=== PATIENT | female | born 1985 | race Caucasian/White ===

== ENCOUNTER 2020-08-07 13:44 | Emergency (ER) | payer OTHER, MEDICAID, SELFPAY ==
[2020-08-07 13:50] VITALS: BP 145/89; PULSE 86; RESP 14; TEMP 36.4; O2SAT 97; BMI 28.1
[2020-08-07] MEDS: KETOROLAC 60 MG/2 ML VIAL 30 MG IM (14:56)
--- NOTE | 2020-08-07 15:03 | ED_ITS ---
HPI - Dental/Oral <CHASE Souza - Last Filed: 08/07/20 15:51> General Chief complaint: Dental/Oral Stated complaint: swelling in mouth, painful since last night Time Seen by Provider: 08/07/20 14:31 Source: patient Mode of arrival: Ambulatory Limitations: no limitations History of Present Illness HPI Narrative: The patient is a 35-year-old female who presents with her significant other with a chief complaint of pain and swelling in her mouth. She is concerned about dental infection. She does not currently use IV drugs, though she has in the past. No history of diabetes. She states she is ?very bad teeth with multiple cavities and fractures. She states she noticed this last night and that is very painful to touch her gums. She denies any fevers muscle aches or chills. She states that she is going to get an appointment with a dentist. Related Data Previous Rx's Medication Instructions Recorded cephalexin [Keflex] 500 mg PO TID #21 cap 04/29/16 ketorolac 10 mg PO TID PRN 5 Days #15 tab 08/07/20 penicillin V potassium 500 mg PO TID 10 Days #30 tab 08/07/20 Allergies Allergy/AdvReac Type Severity Reaction Status Date / Time No Known Drug Allergies Allergy Verified 08/07/20 13:50 Review of Systems <NICHOLE Souza - Last Filed: 08/07/20 15:51> Review of Systems Narrative: GENERAL: Denies chills, fatigue, malaise, fever, sweats. HEENT: See HPI RESPIRATORY: Denies dyspnea, cough, wheezing, hemoptysis, sputum. CARDIOVASCULAR: Denies chest pain, palpitations, orthopnea, edema, GASTROINTESTINAL: Denies nausea, vomiting, abdominal pain, diarrhea, constipation, melena. : Denies dysuria, frequency, incontinence, hematuria, urinary retention. MUSCULOSKELETAL: denies weakness, joint pain, or bony pain SKIN: Denies rash, skin lesions, or other NEUROLOGIC: Denies weakness, headache, numbness, change in speech, confusion, seizures, incoordination. PSYCHIATRIC: No concerning psychosocial issues. 12 point review of systems is negative except for those stated above Patient History <CHASE Souza - Last Filed: 08/07/20 15:51> Medical History (Updated 08/07/20 @ 15:07 by CHASE Souza) Anxiety Depression Substance abuse Vaginal delivery (07/14/13) Exam <CHASE Souza - Last Filed: 08/07/20 15:51> Narrative Exam Narrative: GENERAL: This is a well-nourished, well-developed patient, in no acute distress HEAD: Atraumatic. Normocephalic. No temporal or scalp tenderness. EYES: Pupils equal round and reactive. Extraocular motions intact. No scleral icterus. No injection or drainage. ENT: Nose without bleeding, purulent drainage or septal hematoma. Throat without erythema, tonsillar hypertrophy or exudate. Uvula midline. Airway patent. Poor dentition with multiple broken teeth and cavities noted. Pain to palpation of left upper gumline, swelling noted, no palpable fluctuance or abscess NECK: Trachea midline. No JVD or lymphadenopathy. Supple, nontender, no meningeal signs. CARDIOVASCULAR: Regular rate and rhythm RESPIRATORY: Clear to auscultation. Breath sounds equal bilaterally. No wheezes, rales, or rhonchi. GASTROINTESTINAL: Abdomen soft, non-tender, nondistended. No hepato- splenomegaly, or palpable masses. No guarding. NEURO: AOx3. SKIN: No rash or erythema on visible skin. No erythema overlying face. Initial Vital Signs Initial Vital Signs: Vital Signs Temperature 97.6 F 08/07/20 13:50 Pulse Rate 86 08/07/20 13:50 Respiratory Rate 14 08/07/20 13:50 Blood Pressure 145/89 H 08/07/20 13:50 Pulse Oximetry 97 08/07/20 13:50 <Lizzeth Pavon DO - Last Filed: 08/07/20 19:29> Initial Vital Signs Initial Vital Signs: Vital Signs Temperature 97.6 F 08/07/20 13:50 Pulse Rate 86 08/07/20 13:50 Respiratory Rate 14 08/07/20 13:50 Blood Pressure 145/89 H 08/07/20 13:50 Pulse Oximetry 97 08/07/20 13:50 Scores <CHASE Souza - Last Filed: 08/07/20 15:51> GCS [place] coma scale eye opening: Spontaneous [place] coma scale verbal response: Orientated [place] coma scale motor response: Obey commands [place] coma scale total score: 15 Course <ARLENE Souza-BC - Last Filed: 08/07/20 15:51> Orders Ordered: Discontinued Medications Ketorolac Tromethamine (Ketorolac 60 Mg/2 Ml Vial) 30 mg IM NOW ONE Stop: 08/07/20 14:51 Last Admin: 08/07/20 14:56 Dose: 30 mg Documented by: JESSENIA Vital Signs Vital signs: Vital Signs - 8 hr 08/07/20 13:50 Temperature 97.6 F Pulse Rate 86 Respiratory Rate 14 Blood Pressure 145/89 H Pulse Oximetry 97 <Lizzeth Pavon DO - Last Filed: 08/07/20 19:29> Orders Ordered: Discontinued Medications Ketorolac Tromethamine (Ketorolac 60 Mg/2 Ml Vial) 30 mg IM NOW ONE Stop: 08/07/20 14:51 Last Admin: 08/07/20 14:56 Dose: 30 mg Documented by: JESSENIA Vital Signs Vital signs: Vital Signs - 8 hr 08/07/20 13:50 Temperature 97.6 F Pulse Rate 86 Respiratory Rate 14 Blood Pressure 145/89 H Pulse Oximetry 97 MDM - Dental/Oral <NICHOLE SouzaBC - Last Filed: 08/07/20 15:51> MDM Narrative Medical decision making narrative: The patient is a 35-year-old female who presents with a chief complaint of dental pain and swelling. Exam indicates infection. No palpable drainable abscess. Will start on penicillin. No signs of systemic infection, though the patient notes that she understands that these are return precautions. Encouraged follow-up with primary care provider in the next few days. Discussed coming back to the ER for acute concerns. Toradol prescription given. Patient has no questions or concerns upon discharge states understanding of return precautions as well as follow-up care. Discharge Plan Departure Patient Disposition: Home Clinical Impression: Dental infection Instructions: Tooth Abscess, DI for Dental Pain Activity Restrictions/Additional Instructions: Thank you for trusting us with your care today. As discussed, I sent 2 prescriptions to [facility]. This includes an antibiotic for infection. Please take this with probiotic or yogurt to help prevent antibiotic related side effects. Please follow-up with primary care provider as well as a dentist Please come back to the ER for acute concerns such as high fevers, inability to tolerate fluids etcetera Prescriptions: New penicillin V potassium 500 mg tablet 500 mg PO TID 10 Days Qty: 30 RF: 0 ketorolac 10 mg tablet 10 mg PO TID PRN (Reason: pain) 5 Days Qty: 15 RF: 0 No Action cephalexin [Keflex] 500 MG capsule 500 mg PO TID Qty: 21 RF: 0 Referrals: [facility] [Outside] <Lizzeth Pavon, - Last Filed: 08/07/20 19:29> Cosign ED Attending Lam Attestation: I was immediately available in the department for consultation. Documentation has been reviewed.
== END 2020-08-07 15:37 | disposition home or self-care (01) ==
PROVIDERS: Emergency Provider Nurse Practitioner Family
DX: K04.7 Periapical abscess without sinus (principal)
CPT/HCPCS: 96372; 99281; 99283; J1885

== ENCOUNTER 2020-11-06 14:20 | Emergency (ER) | payer OTHER, MEDICAID, SELFPAY ==
[2020-11-06 14:25] VITALS: BP 129/84; PULSE 86; RESP 15; TEMP 36.8; O2SAT 97; BMI 24.2
--- NOTE | 2020-11-06 16:28 | ED_ITS ---
HPI - Dental/Oral General Chief complaint: Dental/Oral Stated complaint: gumline swollen, bad tooth, really hurts Time Seen by Provider: 11/06/20 16:17 Source: patient Mode of arrival: Ambulatory Limitations: no limitations History of Present Illness HPI Narrative: 35-year-old female daily smoker with extensive dental history presents with significant other and a chief complaint of some subtle left lower jaw swelling, pain and concern for dental infection. She has no systemic findings such as fever, chills nor nausea or vomiting. She denies any recent dental fracture. She has been in the process of trying to establish with dentist. She denies any intraoral swelling, trouble swallowing or breathing nor drainage or foul taste MD Complaint: tooth pain Teeth map: 1. Onset (ago): day(s) Duration: constant Severity: moderate Relieving factors: nothing Exacerbating factors: chewing Context: history of dental caries Associated symptoms: gum swelling Treatment prior to arrival: none Related Data Previous Rx's Medication Instructions Recorded cephalexin [Keflex] 500 mg PO TID #21 cap 04/29/16 amoxicillin-pot clavulanate 1 tab PO BID #20 tab 11/06/20 [Augmentin] ibuprofen 800 mg PO Q8H PRN #20 tab 11/06/20 Allergies Allergy/AdvReac Type Severity Reaction Status Date / Time No Known Drug Allergies Allergy Verified 11/06/20 14:26 Review of Systems Constitutional Constitutional: Denies chills, Denies fatigue, Denies fever(s), Denies frequent falls, Denies lethargy and Denies weakness Eyes Eyes: Denies change in vision, Denies eye discharge, Denies irritation and Denies loss of vision ENT Ears, Nose, Mouth, and Throat: Denies change in voice, Reports dental pain, Denies dizziness, Denies neck pain, Denies sore throat and Denies throat swelling Cardiovascular Cardiovascular: Denies chest pain, Denies irregular heart rhythm, Denies lightheadedness, Denies palpitations, Denies dyspnea, Denies dyspnea on exertion and Denies orthopnea Respiratory Respiratory: Denies cough, Denies dyspnea, Denies dyspnea on exertion and Denies wheezing Gastrointestinal Gastrointestinal: Denies abdominal pain, Denies change in bowel habits, Denies diarrhea, Denies nausea and Denies vomiting Musculoskeletal Musculoskeletal: Denies neck pain and Denies numbness Integumentary/Breasts Skin/Breast: Denies pruritus, Denies erythema, Denies rash and Denies wounds Neurologic Neurologic: Denies behavioral changes, Denies confusion, Denies dizziness, Denies frequent falls, Denies loss of vision, Denies numbness and Denies weakness Psychiatric Psychiatric: Denies anxiety, Denies behavioral changes, Denies confusion, Denies depression, Denies homicidal ideation and Denies suicidal ideation Endocrine Endocrine: Denies fatigue, Denies flushing and Denies palpitations Hematologic/Lymphatic Hematologic/Lymphatic: Denies easy bruising Allergic/Immunologic Allergic/Immunologic: Denies urticaria, Denies throat swelling and Denies wheezing Patient History Medical History Anxiety Depression Substance abuse Vaginal delivery (07/14/13) Social History Smoking Status: Current every day smoker Smoking Status: Current every day smoker alcohol intake frequency: holidays/special occasions only Substance Use Type: marijuana Exam Narrative Exam Narrative: GEN: AOx3 and in mild distress EYES: Pupils are equal, round, and reactive to light and accommodation. Extraoccular muscles are intact bilaterally. There is no subconjunctival hemorrhage or exudate. ENT: mild left lower mandibular swelling. No redness, warmth, fluctuance. Intraoral exam demonstrates widespread poor dentition, multiple eroded teeth, no obvious fluctuance or intraoral abscess to drain CHEST: Lungs are clear to auscultation bilaterally and free of wheezes, rales, or rhonchi. Heart rate is regular rhythm, there are no murmurs, clicks, rubs, or gallops. There is no chest wall tenderness. ABD: Abdomen is soft and nontender. There is no guarding or rebound. Bowel sounds are normal in all 4 quadrants. There is no mass or organomegaly. EXT: Full painless ROM of all extremities with no loss of sensation or strength. SKIN: Warm, pink, and dry. No erythema or rash Initial Vital Signs Initial Vital Signs: Vital Signs Temperature 98.3 F 11/06/20 14:25 Pulse Rate 86 11/06/20 14:25 Respiratory Rate 15 11/06/20 14:25 Blood Pressure 129/84 11/06/20 14:25 Pulse Oximetry 97 11/06/20 14:25 Course Vital Signs Vital signs: Vital Signs - 8 hr 11/06/20 14:25 Temperature 98.3 F Pulse Rate 86 Respiratory Rate 15 Blood Pressure 129/84 Pulse Oximetry 97 Discharge Plan Departure Patient Disposition: Home Clinical Impression: Abscess, dental Instructions: Tooth Abscess Activity Restrictions/Additional Instructions: *You have been diagnosed with [dental pain with likely early abscess ] *What to do: *Please continue to take your regular medications as directed. [x ] New medication prescriptions sent to your pharmacy: [[facility] in [place] ] [ ] New medication written as a paper prescription [ ] No new medications given *Please follow up with your Dentist provider in 2-3 days, call for an appointment. Let them know you were seen in the Emergency Department and that we ask that you be seen in follow up. We will electronically transmit a record of today's note if your PCP is in our system *Return to Emergency Department if you should have any new, worsening or concerning symptoms, such as [fever greater than 101 F, shaking chills, worsening pain, persistent vomiting or other bothersome symptoms] Prescriptions: New amoxicillin-pot clavulanate [Augmentin] 875-125 mg tablet 1 tab PO BID Qty: 20 RF: 0 ibuprofen 800 mg tablet 800 mg PO Q8H PRN (Reason: pain) Qty: 20 RF: 0 No Action cephalexin [Keflex] 500 MG capsule 500 mg PO TID Qty: 21 RF: 0
[2020-11-06 17:13] VITALS: BP 116/79; PULSE 73; O2SAT 97
== END 2020-11-06 17:14 | disposition home or self-care (01) ==
PROVIDERS: Emergency Provider Emergency Medicine
DX: K04.7 Periapical abscess without sinus (principal)
CPT/HCPCS: 99281

== ENCOUNTER 2020-11-15 23:23 | Emergency (ER) | payer OTHER, MEDICAID, SELFPAY ==
[2020-11-15 23:40] VITALS: BP 119/76; PULSE 101; RESP 24; TEMP 36.8; O2SAT 98; BMI 22.7
[2020-11-16 00:05] LABS: COVID19 -Nasal RAPID Negative (Negative)
--- NOTE | 2020-11-16 00:10 | ED_ITS ---
HPI - Fever General Chief Complaint: Fever Stated Complaint: body aches had fever earlier Time Seen by Provider: 11/15/20 23:42 Source: patient Mode of arrival: Ambulatory Limitations: no limitations History of Present Illness HPI Narrative: 35-year-old female daily smoker with noncontributory medical history presents with her significant other and a chief complaint of feeling unwell over the course of the day. She has had a mild headache, runny nose and nasal congestion body aches from head to toe and multiple loose stools. She denies any recent travel or exposure to persons with COVID. She denies any bad food but has recently been on antibiotics for the treatment of a dental abscess. She denies any ongoing pain or facial swelling nor intraoral drainage. She has had multiple loose stools but denies any blood. She denies any chest pain, shortness of breath or abdominal pain. She denies any vaginal bleeding or discharge. She denies dysuria, frequency or urgency. She denies any illicit drug use. MD complaint: fever Onset (ago): hour(s) Temperature Source: subjective Associated symptoms: chills, myalgias, rhinorrhea, nasal congestion and diarrhea Relieving factors: nothing Exacerbating factors: nothing Treatments prior to arrival fever: none Related Data Previous Rx's Medication Instructions Recorded cephalexin [Keflex] 500 mg PO TID #21 cap 04/29/16 amoxicillin-pot clavulanate 1 tab PO BID #20 tab 11/06/20 [Augmentin] ibuprofen 800 mg PO Q8H PRN #20 tab 11/06/20 Allergies Allergy/AdvReac Type Severity Reaction Status Date / Time No Known Drug Allergies Allergy Verified 11/06/20 14:26 Review of Systems Constitutional Constitutional: Reports body ache(s), Reports chills, Reports fatigue, Reports fever(s), Denies frequent falls, Denies lethargy and Denies weakness Eyes Eyes: Denies change in vision, Denies eye discharge, Denies irritation and Denies loss of vision ENT Ears, Nose, Mouth, and Throat: Denies change in voice, Denies dizziness, Denies neck pain, Denies sore throat and Denies throat swelling Cardiovascular Cardiovascular: Denies chest pain, Denies irregular heart rhythm, Denies lightheadedness, Denies palpitations, Denies dyspnea, Denies dyspnea on exertion and Denies orthopnea Respiratory Respiratory: Denies cough, Denies dyspnea, Denies dyspnea on exertion and Denies wheezing Gastrointestinal Gastrointestinal: Denies abdominal pain, Denies change in bowel habits, Reports diarrhea, Denies nausea and Denies vomiting Musculoskeletal Musculoskeletal: Denies neck pain and Denies numbness Integumentary/Breasts Skin/Breast: Denies pruritus, Denies erythema, Denies rash and Denies wounds Neurologic Neurologic: Denies behavioral changes, Denies confusion, Denies dizziness, Denies frequent falls, Denies loss of vision, Denies numbness and Denies weakness Psychiatric Psychiatric: Denies anxiety, Denies behavioral changes, Denies confusion, Denies depression, Denies homicidal ideation and Denies suicidal ideation Endocrine Endocrine: Reports fatigue, Denies flushing and Denies palpitations Hematologic/Lymphatic Hematologic/Lymphatic: Denies easy bruising Allergic/Immunologic Allergic/Immunologic: Denies urticaria, Denies throat swelling and Denies wheezing Patient History Medical History Anxiety Depression Substance abuse Vaginal delivery (07/14/13) Social History Smoking Status: Current every day smoker Smoking Status: Current every day smoker tobacco type: cigarettes alcohol intake frequency: holidays/special occasions only Substance Use Type: marijuana Exam Narrative Exam Narrative: GENERAL: [35] year old patient appears stated age. Well- nourished, well-developed patient, in mild distress. HEAD: Atraumatic. Normocephalic. EYES: Pupils equal round and reactive. Extraocular motions intact. No scleral icterus. No injection or drainage. ENT: Nose without bleeding, purulent drainage. Throat without erythema, tonsillar hypertrophy or exudate. Airway patent. NECK: Trachea midline. Non tender. No meningeal signs CARDIOVASCULAR: Regular rate and rhythm without murmurs, gallops, or rubs. RESPIRATORY: Clear to auscultation. Breath sounds equal bilaterally. No wheezes, rales, or rhonchi. GASTROINTESTINAL: Abdomen soft, non-tender, nondistended. EXTREMITIES: No edema or joint tenderness. BACK: No midline tenderness, swelling, erythema or warmth. Mild flank pain B/L. NEURO: AOx3. SKIN: No rash or erythema of visible areas Initial Vital Signs Initial Vital Signs: Vital Signs Temperature 98.2 F 11/15/20 23:40 Pulse Rate 101 H 11/15/20 23:40 Respiratory Rate 24 11/15/20 23:40 Blood Pressure 119/76 11/15/20 23:40 Pulse Oximetry 98 11/15/20 23:40 Course Course Course Narrative: patient is becoming a bit fidgety and complaining of more full body pain. I have re-examined her and no reproducible pain. She has a soft belly with normal bowel sounds. Flu swab obtained. She is frustrated that she still hurts. We have had an extensive discussion about our attempts to pursue the cause of her pain as opposed to merely covering it up. She has decided that she would prefer to go home despite no completion of our evaluation. She understands the risk of leaving including severe illness, permanent disability or even . She is willing to accept these risks and assures us that she will return if she feels worse. Patient clearly has the capacity to make this decision and understands the consequences of her decisions. She has been given return precautions and questions have been answered to her apparent satisfaction Orders Ordered: ED Orders 11/15/20 23:39 COVID19 -Nasal swab/Pre-Proc Stat 11/16/20 00:50 Complete Blood Count AUTO DIFF Stat Comprehensive Metabolic Panel Stat 11/16/20 01:50 Urinalysis and Microscopic Stat Urine Culture Stat Urine Drug Screen, Rapid Stat 11/16/20 02:25 Influenza A & B (PCR) Stat Discontinued Medications Sodium Chloride (Normal Saline 0.9%) 1,000 mls @ 1,000 mls/hr IV BOLUS ONE Stop: 11/16/20 01:21 Last Infusion: 11/16/20 02:00 Dose: 0 mls/hr Documented by: Admin: 11/16/20 00:58 Dose: 1,000 mls/hr Documented by: FARZANEH Ketorolac Tromethamine (Ketorolac 30 Mg/Ml Vial) 15 mg IV NOW ONE Stop: 11/16/20 00:23 Last Admin: 11/16/20 00:58 Dose: 15 mg Documented by: FARZANEH Vital Signs Vital signs: Vital Signs - 8 hr 11/15/20 23:40 11/16/20 02:37 Temperature 98.2 F 99.3 F Pulse Rate 101 H Respiratory Rate 24 Blood Pressure 119/76 Pulse Oximetry 98 MDM - Fever Lab Data Result diagrams: 11/16/20 00:50 11/16/20 00:50 Labs: Lab Results 11/15/20 11/16/20 11/16/20 Range/Units 23:39 00:50 00:50 WBC 21.9 H (4.5-11.0) X10^3/uL RBC 4.45 (4.0-5.2) X10^6/uL Hgb 12.3 (12.0-16.0) g/dL Hct 36.8 (36-46) % MCV 82.7 (80-100) fL MCH 27.5 (26-34) PG MCHC 33.3 (30-36) % RDW 15.9 H (11.6-14.8) % Plt Count 333 (150-400) X10^3/uL Neut % (Auto) Not Reportable Lymph % (Auto) Not Reportable [place] % (Auto) Not Reportable Eos % (Auto) Not Reportable Baso % (Auto) Not Reportable Lymph # (Auto) Not Reportable [place] # (Auto) Not Reportable Baso # (Auto) Not Reportable Total Counted 100 Seg Neutrophils % 76.0 H (38-70) % Band Neutrophils % 14.0 H (3-7) % Lymphocytes % (Manual) 7.0 L (25-45) % Monocytes % (Manual) 1.0 L (2-11) % Eosinophils % (Manual) 1.0 L (2-4) % Basophils % (Manual) 1.0 (0-1) % Neutrophils # (Manual) 64417 H (8674-4473) /uL RBC Morphology See below Anisocytosis 2+ H Sodium 136 L (137-145) mmol/L Potassium 3.4 (3.4-5.1) mmol/L Chloride 106 (98-107) mmol/L Carbon Dioxide 18 L (22-32) mmol/L BUN 11 (7-17) mg/dL Creatinine 0.91 (0.52-1.04) mg/dL Estimated GFR > 60.0 (>60) mL/min BUN/Creatinine Ratio 12.1 (6-22) Glucose 110 H (70-100) mg/dL Calcium 9.7 (8.4-10.2) mg/dL Total Bilirubin 0.7 (0.2-1.3) mg/dL AST 23 (14-36) IU/L ALT 14 (<35) IU/L Alkaline Phosphatase 40 (38-126) U/L Total Protein 7.7 (6.3-8.2) g/dL Albumin 4.5 (3.5-5.0) g/dL Globulin 3.2 (1.7-4.1) g/dL Albumin/Globulin Ratio 1.4 (1.0-2.8) Urine Color Urine Appearance Urine pH (4.5-8.0) Ur Specific [place] (1.000-1.035) Urine Protein (Negative) Urine Glucose (UA) (Negative) g/dL Urine Ketones (NEGATIVE) Urine Occult Blood (Negative) Urine Nitrate (Negative) Urine Bilirubin (NEGATIVE) Urine Urobilinogen (0.2) E.U./dL Ur Leukocyte Esterase (NEGATIVE) Urine RBC (0-5/HPF) Urine WBC (0-5/HPF) Urine Bacteria (None) Ur Culture Indicated? U Opiates 300ng/mL cut (Negative) Ur Oxycodone Screen (Negative) Urine Methadone Screen (Negative) Ur Barbiturates Screen (Negative) U Tricyclic Antidepress (Negative) Ur Phencyclidine Scrn (Negative) Ur Amphetamines Screen (Negative) U Methamphetamines Scrn (Negative) Ur MDMA Scrn (Ecstasy) (Negative) U Benzodiazepines Scrn (Negative) Urine Cocaine Screen (Negative) U Marijuana (THC) Screen (Negative) SARS-CoV-2 (PCR) Negative (Negative) Influenza A (RT-PCR) (NEGATIVE) Influenza B (RT-PCR) (NEGATIVE) 11/16/20 11/16/20 11/16/20 Range/Units 01:50 01:50 02:25 WBC (4.5-11.0) X10^3/uL RBC (4.0-5.2) X10^6/uL Hgb (12.0-16.0) g/dL Hct (36-46) % MCV (80-100) fL MCH (26-34) PG MCHC (30-36) % RDW (11.6-14.8) % Plt Count (150-400) X10^3/uL Neut % (Auto) Lymph % (Auto) [place] % (Auto) Eos % (Auto) Baso % (Auto) Lymph # (Auto) [place] # (Auto) Baso # (Auto) Total Counted Seg Neutrophils % (38-70) % Band Neutrophils % (3-7) % Lymphocytes % (Manual) (25-45) % Monocytes % (Manual) (2-11) % Eosinophils % (Manual) (2-4) % Basophils % (Manual) (0-1) % Neutrophils # (Manual) (4255-6692) /uL RBC Morphology Anisocytosis Sodium (137-145) mmol/L Potassium (3.4-5.1) mmol/L Chloride (98-107) mmol/L Carbon Dioxide (22-32) mmol/L BUN (7-17) mg/dL Creatinine (0.52-1.04) mg/dL Estimated GFR (>60) mL/min BUN/Creatinine Ratio (6-22) Glucose (70-100) mg/dL Calcium (8.4-10.2) mg/dL Total Bilirubin (0.2-1.3) mg/dL AST (14-36) IU/L ALT (<35) IU/L Alkaline Phosphatase (38-126) U/L Total Protein (6.3-8.2) g/dL Albumin (3.5-5.0) g/dL Globulin (1.7-4.1) g/dL Albumin/Globulin Ratio (1.0-2.8) Urine Color Yellow Urine Appearance Clear Urine pH 6.0 (4.5-8.0) Ur Specific [place] 1.010 (1.000-1.035) Urine Protein Negative (Negative) Urine Glucose (UA) Negative (Negative) g/dL Urine Ketones Negative (NEGATIVE) Urine Occult Blood Negative (Negative) Urine Nitrate Negative (Negative) Urine Bilirubin Negative (NEGATIVE) Urine Urobilinogen 0.2 (0.2) E.U./dL Ur Leukocyte Esterase Trace H (NEGATIVE) Urine RBC None seen (0-5/HPF) Urine WBC 1-5/hpf (0-5/HPF) Urine Bacteria None seen (None) Ur Culture Indicated? Specimen cultured U Opiates 300ng/mL cut Negative (Negative) Ur Oxycodone Screen Negative (Negative) Urine Methadone Screen Negative (Negative) Ur Barbiturates Screen Negative (Negative) U Tricyclic Antidepress Negative (Negative) Ur Phencyclidine Scrn Negative (Negative) Ur Amphetamines Screen Positive H (Negative) U Methamphetamines Scrn Positive H (Negative) Ur MDMA Scrn (Ecstasy) Negative (Negative) U Benzodiazepines Scrn Negative (Negative) Urine Cocaine Screen Negative (Negative) U Marijuana (THC) Screen Positive H (Negative) SARS-CoV-2 (PCR) (Negative) Influenza A (RT-PCR) Flu a negative (NEGATIVE) Influenza B (RT-PCR) Flu b negative (NEGATIVE) Point of Care Testing Test Results Negative Urine Dip Bedside Urine Glucose Negative Bedside Urine Bilirubin - Negative Bedside Urine Ketone - Negative Urine Specific [place] 1.025 Bedside Urine Occult Blood - Negative Bedside Urine pH 6.0 Bedside Urine Protein - Negative Bedside Urine Urobilinogen +/- 1mg Bedside Urine Nitrite - Negative Bedside Urine Leukocytes +/- 15 Esterase Discharge Plan Departure Patient Disposition: Left Against Medical Advice Prescriptions: No Action cephalexin [Keflex] 500 MG capsule 500 mg PO TID Qty: 21 RF: 0 amoxicillin-pot clavulanate [Augmentin] 875-125 mg tablet 1 tab PO BID Qty: 20 RF: 0 ibuprofen 800 mg tablet 800 mg PO Q8H PRN (Reason: pain) Qty: 20 RF: 0 Stand Alone Forms: Against Medical Advice
[2020-11-16] MEDS: SODIUM CHLORIDE 0.9% 1,000 ML 1000 ML IV (00:58)
[2020-11-16] MEDS: KETOROLAC 30 MG/ML VIAL 15 MG IV (00:58)
[2020-11-16 00:59] LABS: Hematocrit 36.8 % (36-46); Hemoglobin 12.3 g/dL (12.0-16.0); Mean Corpuscular HGB Conc 33.3 % (30-36); Mean Corpuscular Hemoglobin 27.5 PG (26-34); Mean Corpuscular Volume 82.7 fL (80-100); Platelet Count 333 X10^3/uL (150-400); Red Blood Cell Count 4.45 X10^6/uL (4.0-5.2); Red Cell Distribution Width 15.9 % (11.6-14.8); White Blood Cell Count 21.9 X10^3/uL (4.5-11.0)
[2020-11-16 01:00] LABS: Add Manual Diff / Slide Review YES
[2020-11-16 01:08] LABS: Alanine Aminotransferase 14 IU/L (<35); Albumin 4.5 g/dL (3.5-5.0); Albumin Globulin Ratio 1.4 (1.0-2.8); Alkaline Phosphatase 40 U/L (38-126); Aspartate Aminotransferase 23 IU/L (14-36); BUN Creatinine Ratio 12.1 (6-22); Bilirubin Total 0.7 mg/dL (0.2-1.3); Blood Urea Nitrogen 11 mg/dL (7-17); Calcium 9.7 mg/dL (8.4-10.2); Carbon Dioxide 18 mmol/L (22-32); Chloride 106 mmol/L (98-107); Estimated Glomerular Filt Rate > 60.0 mL/min (>60); Globulin 3.2 g/dL (1.7-4.1); Glucose 110 mg/dL (70-100); HEMOLYSIS < 15 (0-50); Potassium 3.4 mmol/L (3.4-5.1); Sodium 136 mmol/L (137-145); Total Protein 7.7 g/dL (6.3-8.2)
[2020-11-16 01:37] LABS: Anisocytosis 2+; Neutrophils Absolute Manual 19710 /uL (3000-5900); Total Cells Counted 100
[2020-11-16 02:01] LABS: Bacteria Urine None Seen; RBC Urine None Seen (0-5/HPF)
[2020-11-16 02:03] LABS: Appearance Urine UA CLEAR; Bilirubin Urine UA NEGATIVE (NEGATIVE); Color Urine UA YELLOW; Glucose Urine UA NEGATIVE (Negative); Ketones Urine UA NEGATIVE (NEGATIVE); Leukocyte Esterase Urine UA TRACE (NEGATIVE); Nitrite Urine UA NEGATIVE (Negative); Occult Blood Urine UA NEGATIVE (Negative); Protein Urine UA NEGATIVE (Negative); Urobilinogen Urine UA 0.2 E.U./dL (0.2)
[2020-11-16 02:14] LABS: Culture Indicated Urine Specimen Cultured; WBC Urine 1-5/HPF (0-5/HPF)
[2020-11-16 02:37] VITALS: TEMP 37.4
[2020-11-16 02:55] LABS: UR Morphine/Opiate cutoff 300 Negative (Negative); Ur Creatinine 20 (Normal); Urine Amphetamines Positive (Negative); Urine Barbiturates Negative (Negative); Urine Benzodiazepines Negative (Negative); Urine Cocaine Negative (Negative); Urine MDMA Negative (Negative); Urine Methadone Negative (Negative); Urine Methamphetamines Positive (Negative); Urine Oxycodone Negative (Negative); Urine Phencyclidine Negative (Negative); Urine Tetrahydrocannabinol Positive (Negative); Urine Tricyclic Antidepressant Negative (Negative); Urine pH 6 (Normal)
[2020-11-16 02:59] LABS: Influenza A - CEPHEID Flu A NEGATIVE (NEGATIVE); Influenza B - CEPHEID Flu B NEGATIVE (NEGATIVE)
== END 2020-11-16 02:37 | disposition left against medical advice (07) ==
PROVIDERS: Emergency Provider Emergency Medicine
DX: R51.9 Headache, unspecified (principal); R19.7 Diarrhea, unspecified; R50.9 Fever, unspecified; Z20.822 Contact with and (suspected) exposure to COVID-19
CPT/HCPCS: 36415; 80053; 80305; 81001; 81003; 81025; 85007; 85025; 87086; 87502; 87635; 96361; 96374; 99284; C9803; J1885

== ENCOUNTER 2021-03-06 16:33 | Emergency (ER) | payer OTHER, MEDICAID, SELFPAY ==
[2021-03-06 16:41] VITALS: BP 114/70; PULSE 64; RESP 18; TEMP 36.4; O2SAT 98; BMI 21.9
[2021-03-06 17:13] LABS: COVID19 -Nasal RAPID Negative (Negative)
--- NOTE | 2021-03-06 19:00 | ED_ITS ---
HPI - Recheck/Abnormal Lab/Rx <EMPERATRIZ Marr - Last Filed: 03/06/21 19:05> General Chief Complaint: Recheck/Abnormal Lab/Rx Stated Complaint: WANTS TO BE TESTED FOR COVID Time Seen by Provider: 03/06/21 17:08 Source: patient Mode of arrival: Ambulatory Limitations: no limitations History of Present Illness HPI narrative: 35-year-old female presents the ED today for possible COVID e xposure, requesting COVID test. Patient reports that she was golfing a week ago with that somebody who tested positive on Tuesday. She denies any symptoms including shortness breath, cough, fever, chest pain, difficulty breathing, or nausea & vomiting. Related Data Previous Rx's Medication Instructions Recorded cephalexin 500 mg capsule (Keflex) 500 mg PO TID #21 cap 04/29/16 amoxicillin 875 mg-potassium 1 tab PO BID #20 tab 11/06/20 clavulanate 125 mg tablet (Augmentin) ibuprofen 800 mg tablet 800 mg PO Q8H PRN #20 tab 11/06/20 Allergies Allergy/AdvReac Type Severity Reaction Status Date / Time No Known Drug Allergies Allergy Verified 03/06/21 16:40 Review of Systems <EMPERATRIZ Marr - Last Filed: 03/06/21 19:05> Review of Systems Narrative: General: denies fever, chills Head/Neck: denies headache, neck pain Eyes: denies visual changes, eye pain Cardio: denies chest pain, palpitations Respiratory: denies shortness of breath, cough GI: denies abdominal pain, nausea, vomiting, or diarrhea : denies dysuria, hematuria MSK: denies joint pain, muscle weakness Skin: denies rash, itching Neuro: denies numbness, tingling Patient History <EMPERATRIZ Marr - Last Filed: 03/06/21 19:05> Medical History Anxiety Depression Substance abuse Vaginal delivery (07/14/13) Social History Smoking Status: Current every day smoker Smoking Status: Current every day smoker tobacco type: cigarettes alcohol intake frequency: holidays/special occasions only Substance Use Type: marijuana Exam <EMPERATRIZ Marr - Last Filed: 03/06/21 19:05> Narrative Exam Narrative: Independently reviewed vitals signs and nursing notes. General: Awake, alert, nontoxic, no cardiorespiratory distress Head/Neck: Atraumatic, neck full range of motion Eyes: EOMI, conjunctiva normal Nose: nares patent, no rhinorrhea Mouth/Throat: moist mucus membranes, posterior pharynx normal, no oral lesions Cardio: Regular rate and rhythm, no peripheral edema Respiratory: respirations unlabored without wheezing, stridor, or rales. No retractions. GI: Abdomen soft, nontender MSK: Moves all extremities, neurovascularly intact Skin: Normal capillary refill, no rash Neuro: Normal speech and cognition, normal gait Initial Vital Signs Initial Vital Signs: Vital Signs Temperature 97.6 F 03/06/21 16:41 Pulse Rate 64 03/06/21 16:41 Respiratory Rate 18 03/06/21 16:41 Blood Pressure 114/70 03/06/21 16:41 Pulse Oximetry 98 03/06/21 16:41 <Jose G Luna DO - Last Filed: 03/07/21 08:15> Initial Vital Signs Initial Vital Signs: Vital Signs Temperature 97.6 F 03/06/21 16:41 Pulse Rate 64 03/06/21 16:41 Respiratory Rate 18 03/06/21 16:41 Blood Pressure 114/70 03/06/21 16:41 Pulse Oximetry 98 03/06/21 16:41 Course <EMPERATRIZ Marr - Last Filed: 03/06/21 19:05> Orders Ordered: ED Orders 03/06/21 16:44 COVID19 -Nasal swab/Pre-Proc Stat Vital Signs Vital signs: Vital Signs - 8 hr 03/06/21 16:41 Temperature 97.6 F Pulse Rate 64 Respiratory Rate 18 Blood Pressure 114/70 Pulse Oximetry 98 <Jose G Luna DO - Marco A Filed: 03/07/21 08:15> Orders Ordered: ED Orders 03/06/21 16:44 COVID19 -Nasal swab/Pre-Proc Stat Vital Signs Vital signs: Vital Signs - 8 hr 03/06/21 16:41 Temperature 97.6 F Pulse Rate 64 Respiratory Rate 18 Blood Pressure 114/70 Pulse Oximetry 98 MDM - Recheck/Abnormal Lab/Rx <Kassidy Sherry Mejia, RODEO CLOWN - Last Filed: 03/06/21 19:05> Lab Data Labs: Lab Results 03/06/21 Range/Units 16:44 SARS-CoV-2 (PCR) Negative (Negative) [facility] Narrative Medical decision making narrative: 35-year-old female presents to the ED today for possible exposure to COVID, requesting COVID test. Her COVID test was negative today. Patient understands to return for any new or worsening symptoms including fever, shortness of breath, cough, nausea vomiting, chest pain, or any other concerning symptoms. Patient is appropriate and amenable to discharge home. Vital signs are stable on repeat examination is unremarkable. Patient has been informed of results. Patient has been given strict return to ER precautions for any new or worsening symptoms. Patient understands to follow up closely with outpatient providers as instructed. Patient understands plan and agrees to discharge home. All questions and concerns answered at this time. <Jose G Luna DO - Last Filed: 03/07/21 08:15> Lab Data Labs: Lab Results 03/06/21 Range/Units 16:44 SARS-CoV-2 (PCR) Negative (Negative) Discharge Plan Departure Patient Disposition: Home Clinical Impression: Encounter for screening for COVID-19 Instructions: About the COVID-19 Vaccine, Can COVID-19 be prevented? Activity Restrictions/Additional Instructions: * Congratulations, your COVID test today was negative. Please return if you develop any symptoms of COVID-19 including: shortness of breath, fever, cough, difficulty breathing, nausea or vomiting. *What to do: *Please continue to take your regular medications as directed. [ ] New medication prescriptions sent to your pharmacy: [ ] [ ] New medication written as a paper prescription [ x] No new medications given *Please follow up with your primary care provider in 2-3 days, call for an appointment. Let them know you were seen in the Emergency Department and that we ask that you be seen in follow up. We will electronically transmit a record of today's note if your PCP is in our system *If you do not have a primary care provider please contact the [facility] Resource line at [phone]. They will ask some questions about your medical history and help get you set up with a doctor in the community. *Return to Emergency Department if you should have any new, worsening or concerning symptoms, such as [fever greater than 101F, chills, worsening pain, persistent vomiting or other bothersome symptoms] Prescriptions: No Action cephalexin [Keflex] 500 MG capsule 500 mg PO TID Qty: 21 RF: 0 amoxicillin-pot clavulanate [Augmentin] 875-125 mg tablet 1 tab PO BID Qty: 20 RF: 0 ibuprofen 800 mg tablet 800 mg PO Q8H PRN (Reason: pain) Qty: 20 RF: 0 <Jose G Luna, DO - Last Filed: 03/07/21 08:15> [facility] Dr Luna Co-Sign Statement: I was available for consultation during this patient's emergency department visit. This chart is signed by myself for administrative purposes only. I did not have direct contact with this patient during this visit. They were seen independently by the APC.
== END 2021-03-06 18:00 | disposition home or self-care (01) ==
PROVIDERS: Emergency Medicine; Emergency Provider Nurse Practitioner Critical Care Medicine
DX: Z20.822 Contact with and (suspected) exposure to COVID-19 (principal)
CPT/HCPCS: 87635; 99281; C9803

== ENCOUNTER 2022-09-15 16:37 | Emergency (ER) | payer OTHER, MEDICAID, SELFPAY ==
[2022-09-15 16:50] VITALS: PULSE 86; RESP 16; TEMP 36.8; O2SAT 98; BMI 17.2
[2022-09-15 16:55] VITALS: BP 157/115
[2022-09-15 17:27] LABS: Appearance Urine UA CLEAR; Bilirubin Urine UA NEGATIVE (NEGATIVE); Color Urine UA YELLOW; Glucose Urine UA TRACE g/dL (Negative); Ketones Urine UA NEGATIVE (NEGATIVE); Leukocyte Esterase Urine UA 1+ (NEGATIVE); Nitrite Urine UA POSITIVE (Negative); Occult Blood Urine UA NEGATIVE (Negative); Protein Urine UA NEGATIVE (Negative)
[2022-09-15 17:28] LABS: Ictotest Urine Negative (Negative); pH Urine UA 7.5 (4.5-8.0)
[2022-09-15 17:39] LABS: Amorphous Sediment Urine 1+; Bacteria Urine Occasional (0-1); Culture Indicated Urine Specimen Cultured; RBC Urine None Seen (0-5/HPF); Squamous Epithelial Cell Urine None Seen (0-5/HPF); WBC Urine 0-1/HPF (0-5/HPF)
== END 2022-09-15 18:05 | disposition left against medical advice (07) ==
PROVIDERS: Emergency Provider Emergency Medicine
DX: R10.31 Right lower quadrant pain (principal)
CPT/HCPCS: 81001; 81003; 87086; 99281

== ENCOUNTER 2022-10-23 17:58 | Emergency (ER) | payer OTHER, MEDICAID, SELFPAY ==
[2022-10-23 18:07] VITALS: BP 148/97; PULSE 83; RESP 16; TEMP 37.2; O2SAT 99; BMI 17.2
--- NOTE | 2022-10-23 18:07 | ED.GENADULT ---
HPI - General Adult General Chief complaint: Wound/Laceration Stated complaint: hit head on bunk bed, bleeding Time Seen by Provider: 10/23/22 18:06 History of Present Illness HPI narrative: Otherwise healthy 37-year-old woman was in her kids bedroom and leaning over the lower bunk bed stood up quickly and hit the crown of her head on the edge of the bed and suffered a laceration. There was no loss of consciousness. They applied a dressing to the wound and came directly to the emergency department. She is no other complaints today Related Data Previous Rx's Medication Instructions Recorded cephalexin 500 mg capsule (Keflex) 500 mg PO TID #21 caps 04/29/16 amoxicillin 875 mg-potassium 1 tab PO BID #20 tabs 11/06/20 clavulanate 125 mg tablet (Augmentin) ibuprofen 800 mg tablet 800 mg PO Q8H PRN pain #20 tabs 11/06/20 Allergies Allergy/AdvReac Type Severity Reaction Status Date / Time No Known Drug Allergies Allergy Verified 09/15/22 16:54 Review of Systems Review of Systems Narrative: Pertinent positive and negative findings as per HPI Patient History Medical History Anxiety Depression Substance abuse Vaginal delivery (07/14/13) Social History Smoking Status: Current every day smoker Smoking Status: Current every day smoker tobacco type: vaping alcohol intake frequency: holidays/special occasions only Substance Use Type: marijuana Exam Initial Vital Signs Initial Vital Signs: General: Alert appropriate in no acute distress HEENT: 1 cm partial-thickness laceration to the crown of her head, right side. Bleeding is controlled. The wound is clean and linear. Respiratory: Able to speak in full sentences, no obvious respiratory distress Skin: No obvious rashes, warm and dry Neurologic: Grossly intact no obvious asymmetries or abnormalities Psych: appropriate insight and affect, cooperative Procedures Laceration Repair Scalp laceration: Time of procedure: 18:39 Site: scalp Description: linear and clean Depth: simple, single layer Skin layer closed with: dermabond Technique: other (Hair on either side of the wound was used to close the wound, tightly braided together and the entire wound with a tight Braid was glued with excellent results) Medical Decision Making [facility] Narrative Medical decision making narrative: CC: Scalp laceration, acute issue with self-limited problem Complicating co-morbidities: None Data collected from: patient Differential considered: Partial-thickness this laceration, full-thickness laceration, skull fracture, intracranial hemorrhage Exam documented above, pertinent findings include: 1 cm partial-thickness laceration bleeding controlled Lab Test not indicated with today's visit Imaging studies: Patient does not meet any criteria that would require head CT at this time Discussion: Wound was repaired using Balderas stabilizer and Dermabond to close the wound. Patient tolerated the procedure well. Reviewed anticipated course of recovery and reasons to return to the emergency department Discharge Plan Departure Patient Disposition: Home Clinical Impression: Laceration of scalp Qualifiers: Encounter type: initial encounter Qualified Code(s): S01.01XA - Laceration without foreign body of scalp, initial encounter Instructions: DI for Laceration Repair of the Scalp Activity Restrictions/Additional Instructions: Thank you for coming in today You have a 1 cm cut the top of your head from the bunk bed. It is definitely through the skin but all not all the way through the scalp. I used your hair to hold the edges together and then skin glue to make sure at all state tight. It is okay to take a shower, just blot around the area rather than scrub. Please try to leave the tiny braid and the skin glue in place for at least 5-7 days. Using 400 mg of ibuprofen (2 [id number] pills) and 1 Tylenol every 6 hours can be very helpful in controlling pain. I would expect mild headaches and probably some neck and upper shoulder pain tomorrow If you find that you are getting worse or develop any new symptoms, please feel free to return to the emergency department for further evaluation. Prescriptions: No Action cephalexin [Keflex] 500 MG capsule 500 mg PO TID Qty: 21 0RF amoxicillin-pot clavulanate [Augmentin] 875-125 mg tablet 1 tab PO BID Qty: 20 0RF ibuprofen 800 mg tablet 800 mg PO Q8H PRN (Reason: pain) Qty: 20 0RF Stand Alone Forms: Patient Portal/API
== END 2022-10-23 18:38 | disposition home or self-care (01) ==
PROVIDERS: Emergency Provider Emergency Medicine
DX: S01.01XA Laceration without foreign body of scalp, initial encounter (principal); W22.03XA Walked into furniture, initial encounter
CPT/HCPCS: 99282

== ENCOUNTER 2024-03-27 14:59 | Emergency (ER) | payer OTHER, MEDICAID, SELFPAY ==
[2024-03-27 15:15] VITALS: BP 154/105; PULSE 80; RESP 18; TEMP 36.9; O2SAT 100; BMI 16.9
--- NOTE | 2024-03-27 15:30 | ED_ITS ---
HPI - Dental/Oral <Latha Taylor PA-C - Last Filed: 03/27/24 17:10> General Chief complaint: Dental/Oral Stated complaint: swollen mouth Time Seen by Provider: 03/27/24 15:28 Source: patient Mode of arrival: Ambulatory History of Present Illness HPI Narrative: 38-year-old female presents today with left lower facial swelling and dental pain. She has a history of dental infections in the past and has no regular dentist. She ?says I have bad teeth?. She has been seen at [facility] in the past, she is also endorsing sensitivity to hot and cold liquids, she has had no fever, no recent illness, no upper respiratory symptoms. She has had no trauma to the face. She last took Tylenol 500 mg as well as ibuprofen 200 mg at 2:15 p.m. today. She has been using a microwave he did warm washcloth which seems to help. Has not tried ice. No neck pain or stiffness. All other systems reviewed and are negative. Related Data Previous Rx's Medication Instructions Recorded cephalexin 500 mg capsule (Keflex) 500 mg PO TID #21 caps 04/29/16 amoxicillin 875 mg-potassium 1 tab PO BID #20 tabs 11/06/20 clavulanate 125 mg tablet (Augmentin) ibuprofen 800 mg tablet 800 mg PO Q8H PRN pain #20 tabs 11/06/20 amoxicillin 875 mg-potassium 1 tab PO BID #20 tabs 03/27/24 clavulanate 125 mg tablet ibuprofen 800 mg tablet 800 mg PO Q8H #30 tabs 03/27/24 Allergies Allergy/AdvReac Type Severity Reaction Status Date / Time No Known Drug Allergies Allergy Verified 09/15/22 16:54 Review of Systems <Latha Taylor PA-C - Last Filed: 03/27/24 17:10> Review of Systems Narrative: All other systems reviewed and negative. Patient History <Latha Taylor PA-C - Last Filed: 03/27/24 17:10> Medical History Substance abuse Anxiety Depression Vaginal delivery (07/14/13) Social History Smoking Status: Current every day smoker Smoking Status: Current every day smoker tobacco type: vaping alcohol intake frequency: a few times a month Substance Use Type: marijuana Exam <Latha Taylor PA-C - Last Filed: 03/27/24 17:10> Initial Vital Signs Initial Vital Signs: Vital Signs Temperature 98.5 F 03/27/24 15:15 Pulse Rate 80 03/27/24 15:15 Respiratory Rate 18 03/27/24 15:15 Blood Pressure 154/105 H 03/27/24 15:15 Pulse Oximetry 100 03/27/24 15:15 Oxygen Delivery Method Room Air 03/27/24 15:15 Reviewed and are normal except for elevated blood pressure reading. Const Other: Seated, no obvious distress, visibly swollen left lower mandibular region anterior. Skin is normal color. HENVT Nose: external nose normal and nares normal Face and sinus: sinuses nontender, no erythema and no fluctuance Mouth: oral mucosae normal, lip normal, tongue normal, salivary ducts normal, oropharynx normal, moist mucous membranes, No drooling, No malodorous breath, No mouth trauma, No muffled voice and No thickened frenulum Teeth and gingiva: gingiva abnormal (swelling noted left lower gingiva channel at lateral incisor/1st premolar) and poor dentition (Tooth remnants involving the left lower lateral incisor 1st and 2nd premola) Eyes Sclera: sclerae normal Neck Neck: normal visual inspection, full ROM, no meningeal signs, trachea midline and supple Resp Auscultation: clear to auscultation bilaterally, no rales, no rhonchi and no wheezes Cardio Rate: regular rate Rhythm: regular rhythm <Carmelo Estrada DO - Last Filed: 03/28/24 07:00> Initial Vital Signs Initial Vital Signs: Vital Signs Temperature 98.5 F 03/27/24 15:15 Pulse Rate 80 03/27/24 15:15 Respiratory Rate 18 03/27/24 15:15 Blood Pressure 154/105 H 03/27/24 15:15 Pulse Oximetry 100 03/27/24 15:15 Oxygen Delivery Method Room Air 03/27/24 15:15 Course <Latha Taylor PA-C - Last Filed: 03/27/24 17:10> Course Course Narrative: Treated with Toradol 30 mg intramuscularly x1. Orders Ordered: Discontinued Medications Ketorolac Tromethamine (Ketorolac 30 Mg/Ml Vial) 30 mg IM NOW ONE Stop: 03/27/24 16:21 Last Admin: 03/27/24 16:25 Dose: 30 mg Documented By: BATSHEVA Vital Signs Vital signs: Vital Signs - 8 hr 03/27/24 15:15 Temperature 98.5 F Pulse Rate 80 Respiratory Rate 18 Blood Pressure 154/105 H Pulse Oximetry 100 Oxygen Delivery Method Room Air <Carmelo Estrada DO - Last Filed: 03/28/24 07:00> Orders Ordered: Discontinued Medications Ketorolac Tromethamine (Ketorolac 30 Mg/Ml Vial) 30 mg IM NOW ONE Stop: 03/27/24 16:21 Last Admin: 03/27/24 16:25 Dose: 30 mg Documented By: BATSHEVA Vital Signs Vital signs: Vital Signs - 8 hr 03/27/24 15:15 Temperature 98.5 F Pulse Rate 80 Respiratory Rate 18 Blood Pressure 154/105 H Pulse Oximetry 100 Oxygen Delivery Method Room Air MDM - Dental/Oral <Latha Taylor PA-C - Last Filed: 03/27/24 17:10> [facility] Narrative Medical decision making narrative: Dental abscess involving the left lower anterior gingival tissues, there are tooth remnants, these are chronic they involve the left lateral incisor and 1st premolar. The rest of her dentition is in poor repair. There are no loose teeth. She has pain with apically directed pressure, she may have a periapical abscess as well. She needs to see dental, I have asked her to contact [facility] for follow-up. I have started her on Augmentin, as well as ibuprofen 800 mg. She is in recovery and has been sober for 2 years so we will avoid any narcotic analgesia. I would like her to continue with the heat, warm salt water rinse and spit, and please return to the emergency department if anything worsens or changes. Red flag warning signs are reviewed in detail. <Carmelo Estrada DO - Last Filed: 03/28/24 07:00> [facility] Narrative Medical decision making narrative: Dental abscess involving the left lower anterior gingival tissues, there are tooth remnants, these are chronic they involve the left lateral incisor and 1st premolar. The rest of her dentition is in poor repair. There are no loose teeth. She has pain with apically directed pressure, she may have a periapical abscess as well. She needs to see dental, I have asked her to contact [facility] for follow-up. I have started her on Augmentin, as well as ibuprofen 800 mg. She is in recovery and has been sober for 2 years so we will avoid any narcotic analgesia. I would like her to continue with the heat, warm salt water rinse and spit, and please return to the emergency department if anything worsens or changes. Red flag warning signs are reviewed in detail. Dr. Estrada: I was immediately available in the department for consultation. Documentation has been reviewed. I agree with assessment and plan. Discharge Plan Departure Patient Disposition: Home Clinical Impression: Gingival abscess Instructions: Tooth Abscess Activity Restrictions/Additional Instructions: You appear to have a small gingival abscess involving the tissues surrounding those tooth remnants, you could have a deeper abscess at the roots, these will keep recurring unless you have these tooth remnants removed at some point. I would like you to start the antibiotic which I have prescribed as well as take ibuprofen 800 mg 3 times a day with food, your next dose will be after midnight as you received an injection today of a nonsteroidal anti-inflammatory called Toradol. You can continue with her Tylenol every 4 hours as well, consider warm moist compresses, warm saltwater rinse and spit to keep the area clean, please do not hesitate to return to the emergency department if anything worsens or changes. Please contact [facility] at your earliest for follow-up appointment. Prescriptions: New amoxicillin-pot clavulanate 875-125 mg tablet 1 tab PO BID Qty: 20 0RF ibuprofen 800 mg tablet 800 mg PO Q8H Qty: 30 0RF No Action cephalexin [Keflex] 500 MG capsule 500 mg PO TID Qty: 21 0RF amoxicillin-pot clavulanate [Augmentin] 875-125 mg tablet 1 tab PO BID Qty: 20 0RF ibuprofen 800 mg tablet 800 mg PO Q8H PRN (Reason: pain) Qty: 20 0RF Stand Alone Forms: Patient Portal/API
[2024-03-27] MEDS: KETOROLAC 30 MG/ML VIAL IM (16:25)
[2024-03-27 17:04] VITALS: BP 140/91; PULSE 75; RESP 16; O2SAT 100
== END 2024-03-27 17:08 | disposition home or self-care (01) ==
PROVIDERS: Emergency Provider Physician Assistant Medical
DX: K05.20 Aggressive periodontitis, unspecified (principal)
CPT/HCPCS: 96372; 99283; J1885